=== PATIENT | female | born 1935 | race Caucasian/White ===

== ENCOUNTER → 2016-12-20 | Outpatient (CLI) | payer MEDICARE, OTHER ==
[~2016-12-20] MED LIST: COZAAR100 MG PO; LASIX 20MG TABL20 MG PO; LIPITOR 10MG10 MG PO; NORCO 325 MG-51 TAB PO; NORVASC 10MG10 MG PO; PROTONIX20 MG PO
== END ==
LOC: COL.VAS 09:15
DX: R60.0 Localized edema (principal); R06.02 Shortness of breath

== ENCOUNTER 2017-01-16 07:56 | Emergency (ER) | payer MEDICARE, OTHER ==
[~2017-01-16] VITALS: Ht 170.2 cm; Wt 88.6 kg
[2017-01-16 08:02] VITALS: BP 171/88; PULSE 95; TEMP 98
[2017-01-16] MEDS ORDERED: COZAAR100 MG PO (08:43)
[2017-01-16] MEDS ORDERED: NORVASC 10MG10 MG PO (08:43)
[2017-01-16] MEDS ORDERED: LASIX 20MG TABL20 MG PO (08:43)
[2017-01-16] MEDS ORDERED: PROTONIX20 MG PO (08:43)
[2017-01-16] MEDS ORDERED: LIPITOR 10MG10 MG PO (08:44)
[2017-01-16] MEDS ORDERED: NORCO 325 MG-51 TAB PO (09:26)
== END 2017-01-16 09:36 | disposition home or self-care (01) ==
LOC: COL.ER 07:56
DX: M25.511 Pain in right shoulder (principal); R20.0 Anesthesia of skin; R06.02 Shortness of breath

== ENCOUNTER 2017-02-28 10:30 | Outpatient (RCR) | payer MEDICARE, OTHER | END 2017-02-28 12:57 | disposition home or self-care (01) | LOC: MKS.ESL.PT 10:30 | DX: S46.911A Strain of unspecified muscle, fascia and tendon at shoulder and upper arm level, right arm, initial encounter (principal) | CPT/HCPCS: G8978-GP; G8979-GP; G8980-GP ==

== ENCOUNTER → 2017-04-10 | Outpatient (CLI) | payer MEDICARE, OTHER | LOC: MC.RAD 13:10 | DX: Z12.31 Encounter for screening mammogram for malignant neoplasm of breast (principal) ==

== ENCOUNTER → 2017-12-06 | Outpatient (CLI) | payer MEDICARE, OTHER | LOC: COL.PUL 11:00 | DX: J45.21 Mild intermittent asthma with (acute) exacerbation (principal) ==

== ENCOUNTER 2018-01-25 07:26 | Emergency (ER) | payer MEDICARE, OTHER ==
[~2018-01-25] VITALS: Ht 170.2 cm; Wt 90.9 kg
[2018-01-25 07:32] VITALS: TEMP 98
[2018-01-25] MEDS ORDERED: HCTZ 25MG TAB25 MG PO (07:51)
[2018-01-25] MEDS ORDERED: BENICAR40 MG PO (07:51)
[2018-01-25] MEDS ORDERED: PROAIR HFA0.09 MG/AC IH (07:53)
[2018-01-25] MEDS ORDERED: SINGULAIR 110 MG/TAB PO (07:53)
[2018-01-25] MEDS ORDERED: ZANTAC 150150 MG PO (07:53)
[2018-01-25] MEDS ORDERED: PRESERVISION1 SGL PO (07:57)
[2018-01-25 08:14] LABS: BASO % 0.3 % (0.0-2.0); EOS # 0.1 (0.0-0.7); EOS % 1.7 % (0-4.0); GRAN # 4.8 (1.4-6.5); GRAN % 63.9 % (42.2-75.2); HEMATOCRIT 39.4 % (37.0-47.0); HEMOGLOBIN 12.9 g/dl (12.5-16.0); LYMPH # 1.5 (1.2-3.4); LYMPH % 20.6 % (20.0-51.0); MEAN CELL VOLUME 99 fl (80.0-100.0); MEAN CORPUSCULAR HEMOGLOBIN 32 pg (27.0-31.0); MEAN CORPUSCULAR HGB CONC 33 g/dl (33.0-37.0); MEAN PLATELET VOLUME 8.7 fl (7.4-10.4); MONO % 13.2 % (1.7-9.3); PLATELET COUNT 237 K/mm3 (130-400); REDCELL DISTRIBUTION WIDTH-CV 12.7 % (11.5-14.5)
[2018-01-25 08:24] LABS: BILIRUBIN,TOTAL 0.3 mg/dL (0.0-1.0); C-REACTIVE PROTEIN 1.8 mg/dL (0.0-0.9); CALCIUM 9.5 mg/dL (8.4-10.2); CREATININE, serum 0.84 mg/dL (0.52-1.25); TOTAL PROTEIN 7.9 gm/dL (6.4-8.2)
[2018-01-25 08:26] LABS: COLLECTION METHOD CATHETER
[2018-01-25 08:31] LABS: PH 7 (5-8); SQUAMOUS EPITHELIAL 0-2 /hpf; URINE APPEARANCE Clear; URINE BACTERIA None Seen /hpf; URINE BILIRUBIN Negative (NEGATIVE); URINE BLOOD Negative (NEGATIVE); URINE COLOR Straw; URINE GLUCOSE Negative (NEGATIVE); URINE KETONE Negative (NEGATIVE); URINE LEUKOCYTE ESTERASE Negative (NEGATIVE); URINE NITRATE Negative (NEGATIVE); URINE PROTEIN(semi-quant) Negative (NEGATIVE); URINE RBC 0-2 /hpf; URINE UROBILINOGEN Negative (NEGATIVE)
[2018-01-25] MEDS ORDERED: NORCO 325 MG-51 TAB PO (09:47)
[2018-01-25 10:00] VITALS: BP 145/62; PULSE 83
== END 2018-01-25 10:00 | disposition home or self-care (01) ==
LOC: COL.ER 07:26
PROVIDERS: Emergency Medicine
DX: M62.830 Muscle spasm of back (principal)
CPT/HCPCS: J1885; J7040

== ENCOUNTER 2018-02-02 21:01 | Emergency (ER) | payer MEDICARE, OTHER ==
[~2018-02-02] VITALS: Ht 170.2 cm; Wt 90.9 kg
[~2018-02-02 21:01] MED LIST changes: +BENICAR40 MG PO; +HCTZ 25MG TAB25 MG PO; +PRESERVISION1 SGL PO; +PROAIR HFA0.09 MG/AC IH; +SINGULAIR 110 MG/TAB PO; +ZANTAC 150150 MG PO
[2018-02-02 21:08] VITALS: TEMP 98.2
[2018-02-02 21:58] LABS: COLLECTION METHOD CLEAN CATCH
[2018-02-02 22:03] LABS: PH 6 (5-8); SQUAMOUS EPITHELIAL 0-2 /hpf; URINE APPEARANCE Clear; URINE BACTERIA Rare /hpf; URINE BILIRUBIN Negative (NEGATIVE); URINE BLOOD Negative (NEGATIVE); URINE COLOR Straw; URINE GLUCOSE Negative (NEGATIVE); URINE KETONE Negative (NEGATIVE); URINE LEUKOCYTE ESTERASE Trace (NEGATIVE); URINE NITRATE Negative (NEGATIVE); URINE PROTEIN(semi-quant) Negative (NEGATIVE); URINE RBC 0-2 /hpf; URINE UROBILINOGEN Negative (NEGATIVE)
[2018-02-02] MEDS ORDERED: NORCO 325 MG-51 TAB PO (22:39)
[2018-02-02] MEDS ORDERED: FLEXERIL 1010 MG/TAB PO (22:39)
[2018-02-02 22:48] VITALS: BP 138/92; PULSE 80
== END 2018-02-02 22:50 | disposition home or self-care (01) ==
LOC: COL.ER 21:01
PROVIDERS: Emergency Medicine
DX: R10.9 Unspecified abdominal pain (principal); I10 Essential (primary) hypertension; Z90.49 Acquired absence of other specified parts of digestive tract; Z90.710 Acquired absence of both cervix and uterus; Z79.891 Long term (current) use of opiate analgesic

== ENCOUNTER 2018-02-06 08:33 | Emergency (ER) | payer MEDICARE, OTHER ==
[~2018-02-06] VITALS: Ht 170.2 cm; Wt 90.9 kg
[~2018-02-06 08:33] MED LIST changes: +FLEXERIL 1010 MG/TAB PO
[2018-02-06 08:36] VITALS: BP 160/72; TEMP 98
[2018-02-06] MEDS ORDERED: PERCOCET 325 MG1 TA3 PO (09:36)
[2018-02-06 10:04] VITALS: PULSE 82
== END 2018-02-06 09:55 | disposition home or self-care (01) ==
LOC: COL.ER 08:33
DX: M48.54XA Collapsed vertebra, not elsewhere classified, thoracic region, initial encounter for fracture (principal); I10 Essential (primary) hypertension; K21.9 Gastro-esophageal reflux disease without esophagitis; M19.90 Unspecified osteoarthritis, unspecified site; Z79.891 Long term (current) use of opiate analgesic; Z88.2 Allergy status to sulfonamides; Z88.6 Allergy status to analgesic agent

== ENCOUNTER → 2018-02-12 | Outpatient (CLI) | payer MEDICARE, OTHER ==
[~2018-02-12] MED LIST changes: +PERCOCET 325 MG1 TA3 PO
== END ==
LOC: COL.RAD 13:40
DX: S22.080A Wedge compression fracture of T11-T12 vertebra, initial encounter for closed fracture (principal); M47.26 Other spondylosis with radiculopathy, lumbar region; M51.15 Intervertebral disc disorders with radiculopathy, thoracolumbar region; M43.16 Spondylolisthesis, lumbar region; M48.061 Spinal stenosis, lumbar region without neurogenic claudication; M99.73 Connective tissue and disc stenosis of intervertebral foramina of lumbar region

== ENCOUNTER 2018-02-19 07:43 | Outpatient (CLI) | payer MEDICARE, OTHER ==
[~2018-02-19] VITALS: Ht 170.3 cm; Wt 89.3 kg
[2018-02-19 08:48] VITALS: BP 151/81; PULSE 94; TEMP 97.4
[2018-02-19 10:56] VITALS: BP 176/78; PULSE 114
[2018-02-19 11:35] VITALS: BP 145/71; PULSE 95
[2018-02-19 11:50] VITALS: BP 134/95; PULSE 97
[2018-02-19 12:07] VITALS: BP 141/84; PULSE 91
== END 2018-02-19 13:30 | disposition home or self-care (01) ==
LOC: COL.CAR 07:43
DX: M80.08XA Age-related osteoporosis with current pathological fracture, vertebra(e), initial encounter for fracture (principal); I10 Essential (primary) hypertension; Z88.2 Allergy status to sulfonamides; Z88.1 Allergy status to other antibiotic agents; Z79.51 Long term (current) use of inhaled steroids; E78.5 Hyperlipidemia, unspecified; M19.90 Unspecified osteoarthritis, unspecified site; J45.21 Mild intermittent asthma with (acute) exacerbation; J30.2 Other seasonal allergic rhinitis; Z82.3 Family history of stroke; Z80.0 Family history of malignant neoplasm of digestive organs; Z82.49 Family history of ischemic heart disease and other diseases of the circulatory system; Z80.1 Family history of malignant neoplasm of trachea, bronchus and lung; Z83.3 Family history of diabetes mellitus
CPT/HCPCS: J2250; J3010

== ENCOUNTER → 2018-03-27 | Outpatient (CLI) | payer MEDICARE, OTHER ==
[~2018-03-27] VITALS: Ht 170.2 cm; Wt 89.4 kg
[~2018-03-27] MED LIST changes: +ADVIL LIQUI-GE200 MG PO; +FLONASE NASAL S16 GM NS; +NORVASC 5MG5 MG/TAB PO; +PERCOCET 325 MG1 TA2 PO; +TYLENOL 500MG500 MG PO
[2018-03-27 09:37] VITALS: BP 162/88; PULSE 103
[2018-03-27 10:41] VITALS: BP 159/85; PULSE 89
== END ==
LOC: COL.RAD 09:12
DX: M51.26 Other intervertebral disc displacement, lumbar region (principal)
CPT/HCPCS: J3301

== ENCOUNTER 2018-03-31 00:28 | Emergency (ER) | payer MEDICARE, OTHER ==
[~2018-03-31] VITALS: Ht 170.2 cm; Wt 90.5 kg
[~2018-03-31 00:28] MED LIST changes: -PERCOCET 325 MG1 TA2 PO
[2018-03-31 00:37] VITALS: TEMP 98.1
[2018-03-31] MEDS ORDERED: PERCOCET 325 MG1 TA2 PO (03:16)
[2018-03-31 04:00] VITALS: BP 136/42; PULSE 92
== END 2018-03-31 04:00 | disposition home or self-care (01) ==
LOC: COL.ER 00:28
DX: G89.29 Other chronic pain (principal); M54.5 Low back pain; I10 Essential (primary) hypertension; Z90.710 Acquired absence of both cervix and uterus; Z79.51 Long term (current) use of inhaled steroids
CPT/HCPCS: J1170

== ENCOUNTER → 2018-04-16 | Outpatient (CLI) | payer MEDICARE, OTHER ==
[~2018-04-16] VITALS: Ht 170.2 cm; Wt 86.9 kg
[~2018-04-16] MED LIST changes: +PERCOCET 325 MG1 TA2 PO
[2018-04-16 12:16] VITALS: BP 170/89; PULSE 101
[2018-04-16 13:30] VITALS: BP 166/81; PULSE 94
== END ==
LOC: COL.RAD 11:40
DX: S22.080A Wedge compression fracture of T11-T12 vertebra, initial encounter for closed fracture (principal); M47.26 Other spondylosis with radiculopathy, lumbar region; M51.16 Intervertebral disc disorders with radiculopathy, lumbar region
CPT/HCPCS: J3301

== ENCOUNTER 2018-05-04 15:30 | Emergency (ER) | payer MEDICARE, OTHER ==
[~2018-05-04] VITALS: Ht 170.2 cm; Wt 86.4 kg
[2018-05-04 15:34] VITALS: TEMP 98.2
[2018-05-04 16:45] LABS: COLLECTION METHOD CLEAN CATCH
[2018-05-04 16:46] LABS: BASO % 0.3 % (0.0-2.0); EOS # 0.1 (0.0-0.7); EOS % 0.8 % (0-4.0); GRAN # 4.6 (1.4-6.5); GRAN % 63.3 % (42.2-75.2); HEMATOCRIT 37.8 % (37.0-47.0); HEMOGLOBIN 12.6 g/dl (12.5-16.0); LYMPH # 1.5 (1.2-3.4); LYMPH % 21.2 % (20.0-51.0); MEAN CELL VOLUME 98 fl (80.0-100.0); MEAN CORPUSCULAR HEMOGLOBIN 33 pg (27.0-31.0); MEAN CORPUSCULAR HGB CONC 33 g/dl (33.0-37.0); MEAN PLATELET VOLUME 8.1 fl (7.4-10.4); PLATELET COUNT 280 K/mm3 (130-400); RED BLOOD COUNT 3.85 M/mm3 (4.10-5.30); REDCELL DISTRIBUTION WIDTH-CV 13.2 % (11.5-14.5)
[2018-05-04 16:53] LABS: MUCOUS Present /lpf; PH 6 (5-8); SQUAMOUS EPITHELIAL 0-2 /hpf; URINE APPEARANCE Clear; URINE BACTERIA Rare /hpf; URINE BILIRUBIN Negative (NEGATIVE); URINE BLOOD Negative (NEGATIVE); URINE COLOR Yellow; URINE GLUCOSE Negative (NEGATIVE); URINE KETONE Negative (NEGATIVE); URINE LEUKOCYTE ESTERASE Trace (NEGATIVE); URINE NITRATE Negative (NEGATIVE); URINE PROTEIN(semi-quant) Negative (NEGATIVE); URINE RBC 0-2 /hpf; URINE UROBILINOGEN Negative (NEGATIVE)
[2018-05-04 16:55] LABS: BILIRUBIN,TOTAL 0.4 mg/dL (0.0-1.0); C-REACTIVE PROTEIN 0.8 mg/dL (0.0-0.9); CALCIUM 9.6 mg/dL (8.4-10.2); CREATININE, serum 0.91 mg/dL (0.52-1.25); POTASSIUM 3.9 mmol/L (3.4-5.0); TOTAL PROTEIN 7.5 gm/dL (6.4-8.2)
[2018-05-04] MEDS ORDERED: NORVASC 5MG5 MG/TAB PO (18:15)
[2018-05-04] MEDS ORDERED: BENICAR40 MG PO (18:16)
[2018-05-04] MEDS ORDERED: PERCOCET 325 MG1 TA2 PO (18:22)
[2018-05-04 18:44] VITALS: BP 147/65; PULSE 95
== END 2018-05-04 18:56 | disposition home or self-care (01) ==
LOC: COL.ER 15:30
PROVIDERS: Emergency Medicine
DX: S22.079A Unspecified fracture of T9-T10 vertebra, initial encounter for closed fracture (principal); X58.XXXA Exposure to other specified factors, initial encounter
CPT/HCPCS: J3010; J7030; Q9967

== ENCOUNTER 2018-05-19 12:27 | Outpatient (CLI) | payer MEDICARE, OTHER ==
[2018-05-19] VITALS (8 sets, daily range): BP systolic 114–145; BP diastolic 48–74; PULSE 90–108
[2018-05-19] MEDS ORDERED: AREDS 2 (13:41)
[2018-05-19] MEDS ORDERED: VITAMIN D32000 IU (13:42)
[2018-05-19] MEDS ORDERED: PERCOCET 325 MG1 TA2 PO (13:43)
== END 2018-05-19 18:10 | disposition home or self-care (01) ==
LOC: COL.CAR 12:27
DX: S22.080A Wedge compression fracture of T11-T12 vertebra, initial encounter for closed fracture (principal); I10 Essential (primary) hypertension; Z90.710 Acquired absence of both cervix and uterus; Z88.2 Allergy status to sulfonamides; Z88.5 Allergy status to narcotic agent
CPT/HCPCS: C1713; J2250; J3010; J7120

== ENCOUNTER 2018-05-23 04:54 | Emergency (ER) | payer MEDICARE, OTHER ==
[~2018-05-23] VITALS: Ht 170.2 cm; Wt 86.4 kg
[~2018-05-23 04:54] MED LIST changes: +AREDS 2; +VITAMIN D32000 IU
[2018-05-23 04:55] VITALS: TEMP 98.2
[2018-05-23] MEDS ORDERED: FOSAMAX 10M10 MG/TAB PO (05:12)
[2018-05-23 05:42] LABS: BASO % 0.1 % (0.0-2.0); EOS # 0.1 (0.0-0.7); EOS % 1.8 % (0-4.0); GRAN # 4.1 (1.4-6.5); GRAN % 60.9 % (42.2-75.2); HEMATOCRIT 37.5 % (37.0-47.0); HEMOGLOBIN 12.8 g/dl (12.5-16.0); LYMPH # 1.4 (1.2-3.4); LYMPH % 21.3 % (20.0-51.0); MEAN CELL VOLUME 99 fl (80.0-100.0); MEAN CORPUSCULAR HEMOGLOBIN 34 pg (27.0-31.0); MEAN CORPUSCULAR HGB CONC 34 g/dl (33.0-37.0); MEAN PLATELET VOLUME 8.5 fl (7.4-10.4); MONO % 15.5 % (1.7-9.3); PLATELET COUNT 234 K/mm3 (130-400); REDCELL DISTRIBUTION WIDTH-CV 12.9 % (11.5-14.5)
[2018-05-23 05:54] LABS: ALBUMIN 3.8 gm/dL (3.5-5.0); BILIRUBIN,TOTAL 0.5 mg/dL (0.0-1.0); CALCIUM 8.7 mg/dL (8.4-10.2); CREATININE, serum 0.78 mg/dL (0.52-1.25); POTASSIUM 3.8 mmol/L (3.4-5.0); TOTAL PROTEIN 6.9 gm/dL (6.4-8.2)
[2018-05-23] MEDS ORDERED: ZOFRAN ODT4 MG PO (06:16)
[2018-05-23] MEDS ORDERED: LIDODERM 5% PATC1 EA TP (06:16)
[2018-05-23] MEDS ORDERED: ULTRAM 50MG TAB50 MG PO (06:50)
[2018-05-23 07:03] VITALS: BP 137/56; PULSE 86
[2018-05-24] MEDS ORDERED: MASON NATURAL2000 IU (23:00)
== END 2018-05-23 07:02 | disposition home or self-care (01) ==
LOC: COL.ER 04:54
PROVIDERS: Emergency Medicine
DX: T39.1X5A Adverse effect of 4-Aminophenol derivatives, initial encounter (principal); S22.000A Wedge compression fracture of unspecified thoracic vertebra, initial encounter for closed fracture; R11.0 Nausea; I10 Essential (primary) hypertension; Z79.51 Long term (current) use of inhaled steroids; X58.XXXA Exposure to other specified factors, initial encounter
CPT/HCPCS: J2405; J7030

== ENCOUNTER 2018-05-24 21:12 | Emergency (ER) | payer MEDICARE, OTHER ==
[~2018-05-24 21:12] MED LIST changes: +FOSAMAX 10M10 MG/TAB PO; +LIDODERM 5% PATC1 EA TP; +ULTRAM 50MG TAB50 MG PO; +ZOFRAN ODT4 MG PO
[2018-05-24 21:24] VITALS: TEMP 98.2
[2018-05-24 22:47] LABS: BASO % 0.3 % (0.0-2.0); EOS # 0.1 (0.0-0.7); EOS % 1.4 % (0-4.0); GRAN # 3.9 (1.4-6.5); GRAN % 61.2 % (42.2-75.2); HEMATOCRIT 38.1 % (37.0-47.0); HEMOGLOBIN 12.8 g/dl (12.5-16.0); LYMPH # 1.4 (1.2-3.4); LYMPH % 22.2 % (20.0-51.0); MEAN CELL VOLUME 99 fl (80.0-100.0); MEAN CORPUSCULAR HEMOGLOBIN 33 pg (27.0-31.0); MEAN CORPUSCULAR HGB CONC 34 g/dl (33.0-37.0); MEAN PLATELET VOLUME 8.6 fl (7.4-10.4); MONO # 0.9 (0.1-0.6); MONO % 14.6 % (1.7-9.3); PLATELET COUNT 261 K/mm3 (130-400); RED BLOOD COUNT 3.85 M/mm3 (4.10-5.30); REDCELL DISTRIBUTION WIDTH-CV 12.9 % (11.5-14.5)
[2018-05-24 22:53] LABS: PROTHROMBIN TIME 11.8 SECONDS (9.7-12.8)
[2018-05-24 22:58] LABS: ALANINE AMINOTRANSFERASE 29 U/L (9-52); ALKALINE PHOSPHATASE 85 U/L (50-136); ANION GAP 7 mmol/L (7-16); AST,SGOT 31 U/L (15-37); BILIRUBIN,TOTAL 0.4 mg/dL (0.0-1.0); BLOOD UREA NITROGEN 19 mg/dL (7-17); CALCIUM 8.9 mg/dL (8.4-10.2); CARBON DIOXIDE 26 mmol/L (22-30); CHLORIDE 99 mmol/L (98-107); CREATININE, serum 0.85 mg/dL (0.52-1.25); GLUCOSE 99 mg/dL (74-106); LIPASE 76 U/L (23-300); POTASSIUM 4.4 mmol/L (3.4-5.0); SODIUM 133 mmol/L (137-145); TOTAL PROTEIN 7.2 gm/dL (6.4-8.2)
[2018-05-24] MEDS ORDERED: MASON NATURAL2000 IU (23:00)
[2018-05-24 23:11] LABS: TROPONIN-I < 0.012 ng/mL (0.000-0.034)
[2018-05-25 01:00] VITALS: BP 152/84; PULSE 93
== END 2018-05-25 01:02 | disposition home or self-care (01) ==
LOC: COL.ER 21:12
PROVIDERS: Emergency Medicine
DX: S22.49XA Multiple fractures of ribs, unspecified side, initial encounter for closed fracture (principal); K21.9 Gastro-esophageal reflux disease without esophagitis; I10 Essential (primary) hypertension; M19.90 Unspecified osteoarthritis, unspecified site; Z90.710 Acquired absence of both cervix and uterus; Z79.51 Long term (current) use of inhaled steroids; X58.XXXA Exposure to other specified factors, initial encounter
CPT/HCPCS: J1170; J2765; J7030

== ENCOUNTER 2018-07-11 15:25 | Outpatient (CLI) | payer MEDICARE, OTHER ==
[~2018-07-11] VITALS: Ht 170.2 cm; Wt 83.5 kg
[~2018-07-11 15:25] MED LIST changes: +MASON NATURAL2000 IU
[2018-07-11 16:39] VITALS: BP 142/60; PULSE 81; TEMP 97.5
== END 2018-07-11 17:29 | disposition home or self-care (01) ==
LOC: EUO 15:25
DX: M81.0 Age-related osteoporosis without current pathological fracture (principal)
CPT/HCPCS: J3489

== ENCOUNTER → 2019-04-27 | Outpatient (CLI) | payer MEDICARE, OTHER | LOC: MC.RAD 13:56 | DX: Z12.31 Encounter for screening mammogram for malignant neoplasm of breast (principal) ==

== ENCOUNTER → 2019-05-13 | Outpatient (CLI) | payer MEDICARE, OTHER ==
[~2019-05-13] MED LIST changes: +DIOVAN320 MG PO; -MASON NATURAL2000 IU; +MASON NATURAL2000 IU PO; +PRESERVISIONLUT PO
== END ==
LOC: COL.RAD 11:37
DX: M47.22 Other spondylosis with radiculopathy, cervical region (principal)

== ENCOUNTER → 2019-05-15 | Outpatient (CLI) | payer MEDICARE, OTHER ==
[~2019-05-15] VITALS: Ht 170.2 cm; Wt 84.6 kg
[2019-05-15 13:21] VITALS: BP 184/76; PULSE 89
--- NOTE | 2019-05-15 13:51 | NUR ---
TAKEN TO CT
--- NOTE | 2019-05-15 14:20 | NUR ---
PT TAKEN BY WHEELCHAIR TO LOBBY AND SON DROVE PT HOME
[2019-05-15 14:21] VITALS: BP 153/75; PULSE 94
== END ==
LOC: COL.RAD 13:00
DX: M51.26 Other intervertebral disc displacement, lumbar region (principal); M48.061 Spinal stenosis, lumbar region without neurogenic claudication
CPT/HCPCS: J3301

== ENCOUNTER → 2019-06-29 | Outpatient (CLI) | payer MEDICARE, OTHER | LOC: MHCPAIN 12:50 | DX: G89.29 Other chronic pain (principal); M47.812 Spondylosis without myelopathy or radiculopathy, cervical region; R51 Headache | CPT/HCPCS: G0463 ==

== ENCOUNTER 2019-08-03 12:57 | Outpatient (CLI) | payer MEDICARE, OTHER ==
[~2019-08-03] VITALS: Ht 170.2 cm; Wt 85.5 kg
[2019-08-03 13:59] VITALS: BP 156/57; PULSE 84; TEMP 97.7
== END 2019-08-03 14:01 | disposition home or self-care (01) ==
LOC: EUO 12:57
DX: M81.0 Age-related osteoporosis without current pathological fracture (principal)
CPT/HCPCS: J3489

== ENCOUNTER → 2019-09-01 | Outpatient (CLI) | payer MEDICARE, OTHER | LOC: MHCPAIN 12:47 | DX: M54.81 Occipital neuralgia (principal); R51 Headache | CPT/HCPCS: G0463 ==

== ENCOUNTER → 2020-03-22 | Outpatient (CLI) | payer MEDICARE, OTHER ==
[~2020-03-22] VITALS: Ht 170.2 cm; Wt 86.3 kg
[2020-03-22 13:29] VITALS: PULSE 69
[2020-03-22 13:31] VITALS: BP 160/70; PULSE 69
[2020-03-22 14:31] VITALS: BP 164/80; PULSE 79
== END ==
LOC: COL.RAD 13:00
DX: M51.26 Other intervertebral disc displacement, lumbar region (principal)
CPT/HCPCS: J3301

== ENCOUNTER → 2020-04-28 | Outpatient (CLI) | payer MEDICARE, OTHER | LOC: MC.RAD 13:00 | DX: Z12.31 Encounter for screening mammogram for malignant neoplasm of breast (principal) ==

== ENCOUNTER 2020-07-13 13:51 | Outpatient (CLI) | payer MEDICARE, OTHER ==
[~2020-07-13] VITALS: Ht 170.2 cm; Wt 87.0 kg
[2020-07-13 14:15] VITALS: BP 150/64; PULSE 72; TEMP 98
== END 2020-07-13 15:10 | disposition home or self-care (01) ==
LOC: EUO 13:51
DX: M81.0 Age-related osteoporosis without current pathological fracture (principal); M84.40XA Pathological fracture, unspecified site, initial encounter for fracture
CPT/HCPCS: J3489

== ENCOUNTER 2020-10-10 14:04 | Inpatient (IN) | payer MEDICARE, OTHER ==
[2020-10-10] VITALS (99 sets, daily range): BP systolic 117–140; BP diastolic 68–103; PULSE 100–128; TEMP 98.1; O2SAT 87–98
[~2020-10-10] VITALS: Ht 170.2 cm; Wt 85.0 kg
[2020-10-10 15:14] LABS: BASO % 0.4 % (0.0-2.0); EOS # 0.3 (0.0-0.7); EOS % 3.2 % (0-4.0); GRAN # 4.1 (1.4-6.5); GRAN % 50.6 % (42.2-75.2); HEMATOCRIT 44.6 % (37.0-47.0); HEMOGLOBIN 14.5 g/dl (12.5-16.0); LYMPH # 2.5 (1.2-3.4); LYMPH % 31.3 % (20.0-51.0); MEAN CELL VOLUME 102 fl (80.0-100.0); MEAN CORPUSCULAR HEMOGLOBIN 33 pg (27.0-31.0); MEAN CORPUSCULAR HGB CONC 33 g/dl (33.0-37.0); MONO # 1.2 (0.1-0.6); MONO % 14.3 % (1.7-9.3); PLATELET COUNT 293 K/mm3 (130-400); RED BLOOD COUNT 4.39 M/mm3 (4.10-5.30); REDCELL DISTRIBUTION WIDTH-CV 12.8 % (11.5-14.5)
[2020-10-10 15:17] LABS: ALANINE AMINOTRANSFERASE 15 U/L (4-34); ALBUMIN 4.3 gm/dL (3.5-5.0); ALKALINE PHOSPHATASE 64 U/L (50-136); ANION GAP 11 mmol/L (7-16); AST,SGOT 25 U/L (15-37); BILIRUBIN,TOTAL 0.4 mg/dL (0.0-1.0); BLOOD UREA NITROGEN 27 mg/dL (7-17); CALCIUM 9.7 mg/dL (8.4-10.2); CARBON DIOXIDE 25 mmol/L (22-30); CHLORIDE 100 mmol/L (98-107); CREATININE, serum 1.06 (0.52-1.25); GLUCOSE 106 mg/dL (74-106); POTASSIUM 3.7 mmol/L (3.4-5.0); SODIUM 136 mmol/L (137-145); TOTAL PROTEIN 7.6 gm/dL (6.4-8.2)
[2020-10-10 15:24] LABS: PROTHROMBIN TIME 11.4 SECONDS (9.7-12.8)
[2020-10-10 15:27] LABS: PARTIAL THROMBOPLASTIN TIME 30.6 SECONDS (26.0-37.0)
[2020-10-10 15:28] LABS: TROPONIN-I < 0.012 ng/mL (0.000-0.035)
--- NOTE | 2020-10-10 20:47 | NUR ---
Received report from EDITH Quintana RN.
[2020-10-10 20:49] LABS: MAGNESIUM 2.1 mg/dL (1.6-2.3)
--- NOTE | 2020-10-10 21:07 | NUR ---
Patient arrives to ICU room 2 via ED stretcher. Patient is alert and oriented and able to ambulate to ICU bed with standby assistance. Patient arrives receiving cardizem at 10 mg/hr or 10 mL/hr to a 20G peripheral IV in the RAC. Initial BP is 140/103 and HR is 128, in afib. Other vitals within normal limits; she is on room air, tolerating well. Denies any pain or discomfort. No skin issues noted.
--- NOTE | 2020-10-10 21:07 | NUR ---
Patient's belongings include street clothes, a wedding ring, and a pair of glasses, which are at the bedside. Denies having dentures, partials, or plates, or any hearing aides. Reports occasional use of walking cane, however, it is not with her at this time. Refuses use of hospital safe when offered.
[2020-10-10 21:23] LABS: TSH w REFLEX 2.49 uIU/mL (0.465-4.680)
[2020-10-10] MEDS ORDERED: RT ADVAIR 228 DISKUS IH (21:32)
[2020-10-11] VITALS (375 sets, daily range): BP systolic 86–118; BP diastolic 36–81; PULSE 80–145; TEMP 97.9–98.2; O2SAT 84–100
--- NOTE | 2020-10-11 02:00 | NUR ---
Cardizem drip set to standby at this time. Patient's BPs have progressively gotten lower, with the last two being 88/50 and 86/36, 15 minutes apart. Patient remains in afib with HR ranging 60-70s. Notified hospitalist, Stefany, who agrees with holding the drip.
--- NOTE | 2020-10-11 05:41 | NUR ---
Patient's HR increased to 160s while ambulating back to bed from toilet. Patient asymptomatic and HR quickly decreased to range of 100-115 once settled in bed. Notified hospitalist, Stefany. SBPs since holding cardizem drip at 0200 have ranged from 100-117 with HR 80-90s. Received orders to restart drip at lowest dose.
[2020-10-11 05:42] LABS: BASO % 0.3 % (0.0-2.0); EOS # 0.2 (0.0-0.7); EOS % 2.6 % (0-4.0); GRAN # 5.4 (1.4-6.5); GRAN % 69.1 % (42.2-75.2); HEMATOCRIT 39.1 % (37.0-47.0); HEMOGLOBIN 13.1 g/dl (12.5-16.0); LYMPH # 1.5 (1.2-3.4); LYMPH % 18.9 % (20.0-51.0); MEAN CELL VOLUME 100 fl (80.0-100.0); MEAN CORPUSCULAR HEMOGLOBIN 33 pg (27.0-31.0); MEAN CORPUSCULAR HGB CONC 34 g/dl (33.0-37.0); MEAN PLATELET VOLUME 8.7 fl (7.4-10.4); MONO # 0.7 (0.1-0.6); MONO % 8.7 % (1.7-9.3); PLATELET COUNT 258 K/mm3 (130-400); RED BLOOD COUNT 3.92 M/mm3 (4.10-5.30); REDCELL DISTRIBUTION WIDTH-CV 12.9 % (11.5-14.5)
[2020-10-11 05:54] LABS: ALBUMIN 3.7 gm/dL (3.5-5.0); BILIRUBIN,TOTAL 0.6 mg/dL (0.0-1.0); CALCIUM 9.2 mg/dL (8.4-10.2); CREATININE, serum 0.95 (0.52-1.25); POTASSIUM 3.6 mmol/L (3.4-5.0); TOTAL PROTEIN 6.7 gm/dL (6.4-8.2)
--- NOTE | 2020-10-11 07:10 | NUR ---
Report received from Kinsey VASQUES. Pt resting in bed although both oncoming and off going nurse assisted to toilet. Pt denies any light headedness and feels steady on feet. Needs standby assist with attached cords.
--- NOTE | 2020-10-11 07:50 | NUR ---
Tech at bedside for Echo.
--- NOTE | 2020-10-11 09:00 | NUR ---
Pt assessment completed. Pt reports posterior tibial pulse to the right leg has always been harder to find due to prior achilles tendon surgery. Other pulses are easily palpable. Cap refill and mobility to extremity WNL.
--- NOTE | 2020-10-11 10:00 | NUR ---
Provided pt security code, unit phone number as well as pt room number.
--- NOTE | 2020-10-11 10:36 | NUR ---
Pt continues to demonstrate ability for proper use of call light for assistance.
--- NOTE | 2020-10-11 11:46 | NUR ---
First visit from the ultrasonic tester. No needs right now.
--- NOTE | 2020-10-11 15:48 | NUR ---
Funeral Home Manager met with the patient to complete intake. The patient lives in [place], her son Cody lives with her. The patient has a cane and is independent. The patient's PCP is Dr. Daugherty at [facility] and patient receives medications from [facility] pharmacy. The patient does not have advanced directives in the EMR but states they are complete and designate her son Cody. The patient plans to return home at discharge. SHEA contacted SHEA Choe from [facility] to inquire about DPOA-HC papwerwork. Дмитрий confirmed that they do have advanced directives for the patient, Дмитрий to fax DPOA-HC paperwork to this SW.
--- NOTE | 2020-10-11 18:20 | NUR ---
Noted bruising medially to Right AC IV line. This has been present since yesterday following X2 IV draws for labs. Pressure was held by this nurse initally (yesterday). Purple bruising remains with signs of healing stages. Pt denies any concerns with IV, including burning, swelling, increased redness or signs of infiltration.
--- NOTE | 2020-10-11 19:05 | NUR ---
Report provided to Kinsey VASQUES. Pt resting in bed.
[2020-10-12] VITALS (662 sets, daily range): BP systolic 101–143; BP diastolic 56–96; PULSE 74–124; TEMP 97.6–98.3; O2SAT 64–100
--- NOTE | 2020-10-12 03:02 | NUR ---
Cardizem drip on standy since approximately 2300 due to soft pressures. Since drip has been on standby, patient's HR has been rate controlled, ranging 70-90s. Despite cardizem being on hold, patient has still had soft pressures, SBPs low 90s, DBPs 50-60s, with MAPs ranging 60-65. However, when patient ambulates, HR temporarily reaches 130s; once back in bed, HR returns to 90-100s range. Contacted hospitalist, Stefany, at [phone] to discuss concerns regarding drip. Per her direction, will keep cardizem on standby at this time.
[2020-10-12 06:42] LABS: BASO % 0.1 % (0.0-2.0); EOS # 0.3 (0.0-0.7); EOS % 3.9 % (0-4.0); GRAN # 4.2 (1.4-6.5); GRAN % 58.3 % (42.2-75.2); HEMOGLOBIN 13.1 g/dl (12.5-16.0); LYMPH # 1.7 (1.2-3.4); LYMPH % 23.6 % (20.0-51.0); MEAN CELL VOLUME 101 fl (80.0-100.0); MEAN CORPUSCULAR HEMOGLOBIN 33 pg (27.0-31.0); MEAN CORPUSCULAR HGB CONC 33 g/dl (33.0-37.0); MEAN PLATELET VOLUME 8.8 fl (7.4-10.4); MONO % 13.8 % (1.7-9.3); PLATELET COUNT 243 K/mm3 (130-400); RED BLOOD COUNT 3.96 M/mm3 (4.10-5.30); REDCELL DISTRIBUTION WIDTH-CV 12.8 % (11.5-14.5)
[2020-10-12 06:52] LABS: CALCIUM 8.7 mg/dL (8.4-10.2); CREATININE, serum 0.9 (0.52-1.25); POTASSIUM 3.9 mmol/L (3.4-5.0)
--- NOTE | 2020-10-12 07:20 | NUR ---
Report given to LAYO Mathew.
--- NOTE | 2020-10-12 10:00 | NUR ---
Distribution Driver received the patient's advanced directives from Дмитрий. They designate her sons, Cody and Frank. A copy was placed in the chart.
--- NOTE | 2020-10-12 18:53 | NUR ---
1107- TIME OUT FOR [facility]YALA AND CARDIOVERSION COMPLETED. Pt successfully converted with one attempt at [address] Zhao, [facility] anesthesia, RN, museum exhibit technician at bedside. PT is currenlty showing sinus rhythm without complaints.
[2020-10-13] VITALS (90 sets, daily range): BP systolic 124–139; BP diastolic 57–60; PULSE 69–83; TEMP 97.8–98; O2SAT 83–100
[2020-10-13 06:42] LABS: BASO % 0.3 % (0.0-2.0); EOS # 0.3 (0.0-0.7); GRAN # 3.9 (1.4-6.5); GRAN % 55.8 % (42.2-75.2); HEMATOCRIT 37.7 % (37.0-47.0); LYMPH # 1.8 (1.2-3.4); LYMPH % 25.7 % (20.0-51.0); MEAN CELL VOLUME 103 fl (80.0-100.0); MEAN CORPUSCULAR HEMOGLOBIN 33 pg (27.0-31.0); MEAN CORPUSCULAR HGB CONC 32 g/dl (33.0-37.0); MONO % 13.9 % (1.7-9.3); PLATELET COUNT 239 K/mm3 (130-400); RED BLOOD COUNT 3.67 M/mm3 (4.10-5.30); REDCELL DISTRIBUTION WIDTH-CV 12.7 % (11.5-14.5)
[2020-10-13 06:55] LABS: CALCIUM 8.7 mg/dL (8.4-10.2); CREATININE, serum 0.94 (0.52-1.25); POTASSIUM 3.9 mmol/L (3.4-5.0)
--- NOTE | 2020-10-13 07:00 | NUR ---
Report received from LAYO Rai. Patient resting in bed, awake, waiting on breakfast.
[2020-10-13] MEDS ORDERED: LASIX 20MG TABL20 MG PO (10:41)
[2020-10-13] MEDS ORDERED: ELIQUIS 5MG PO (10:41)
[2020-10-13] MEDS ORDERED: CORDARONE200 MG/TAB PO (10:43)
[2020-10-13] MEDS ORDERED: HCTZ 25MG TAB25 MG PO (11:09)
--- NOTE | 2020-10-13 13:30 | NUR ---
Patient discharged to home with SonShashi to take her. Discharge packet and prescriptions, and follow up appts discussed.
[2021-06-02] MEDS ORDERED: TOPROL XL 25MG25 MG PO (13:42)
[2021-06-02] MEDS ORDERED: NEURONTIN100 MG/CAP PO (13:42)
[2021-06-02] MEDS ORDERED: SYNTHROID 0.0.025 MG PO (13:43)
== END 2020-10-13 13:30 | disposition home or self-care (01) | DRG 309 ==
LOC: COL.ER 14:04 → ICU 18:19 → EDBEDREQ 19:33 → ICU 10-12 08:31
PROVIDERS: Emergency Medicine; Student in an Organized Health Care Education/Training Program; ADMIT Student in an Organized Health Care Education/Training Program
PROC: 5A2204Z Restoration of Cardiac Rhythm, Single (ICD-10-PCS; principal; 2020-10-12)
PROC: B24BZZ4 Ultrasonography of Heart with Aorta, Transesophageal (ICD-10-PCS; 2020-10-12)
DX: I48.91 Unspecified atrial fibrillation (principal); I50.30 Unspecified diastolic (congestive) heart failure; I11.0 Hypertensive heart disease with heart failure; J45.909 Unspecified asthma, uncomplicated; E03.9 Hypothyroidism, unspecified; I08.1 Rheumatic disorders of both mitral and tricuspid valves; G89.29 Other chronic pain; K21.9 Gastro-esophageal reflux disease without esophagitis; Z20.822 Contact with and (suspected) exposure to COVID-19; R79.0 Abnormal level of blood mineral; Z79.1 Long term (current) use of non-steroidal anti-inflammatories (NSAID); Z90.710 Acquired absence of both cervix and uterus; Z88.2 Allergy status to sulfonamides; Z88.5 Allergy status to narcotic agent
CPT/HCPCS: 99223-AI; 99233-AI; 99239; J0282; J2405; J2704; J7030; J7060; Q9967

== ENCOUNTER → 2020-12-29 | Outpatient (CLI) | payer MEDICARE, OTHER ==
[~2020-12-29] MED LIST changes: +CORDARONE200 MG/TAB PO; +ELIQUIS 5MG PO; +NEURONTIN100 MG/CAP PO; +RT ADVAIR 228 DISKUS IH; +SYNTHROID 0.0.025 MG PO; +TOPROL XL 25MG25 MG PO
== END ==
LOC: COL.VAS 14:24
DX: I65.23 Occlusion and stenosis of bilateral carotid arteries (principal)

== ENCOUNTER 2021-01-18 14:45 | Outpatient (RCR) | payer MEDICARE, OTHER ==
[~2021-01-18 14:45] MED LIST changes: -NEURONTIN100 MG/CAP PO; -SYNTHROID 0.0.025 MG PO; -TOPROL XL 25MG25 MG PO
[2021-06-02] MEDS ORDERED: TOPROL XL 25MG25 MG PO (13:42)
[2021-06-02] MEDS ORDERED: NEURONTIN100 MG/CAP PO (13:42)
[2021-06-02] MEDS ORDERED: SYNTHROID 0.0.025 MG PO (13:43)
== END 2021-03-21 | disposition home or self-care (01) ==
LOC: MKS.ESL.OT
DX: G56.00 Carpal tunnel syndrome, unspecified upper limb (principal)

== ENCOUNTER → 2021-05-01 | Outpatient (CLI) | payer MEDICARE, OTHER ==
[~2021-05-01] MED LIST changes: +NEURONTIN100 MG/CAP PO; +SYNTHROID 0.0.025 MG PO; +TOPROL XL 25MG25 MG PO
== END ==
LOC: MC.RAD 13:28
DX: Z12.31 Encounter for screening mammogram for malignant neoplasm of breast (principal)

== ENCOUNTER → 2021-06-02 | Outpatient (CLI) | payer MEDICARE, OTHER ==
--- NOTE | 2021-05-29 09:45 | NUR ---
LMOM TO STOP ELIQUIS ON SATURDAY. LEFT INSTRUCTIONS AND CALL BACK NUMBER
[~2021-06-02] VITALS: Ht 170.2 cm; Wt 87.0 kg
[2021-06-02 13:33] VITALS: BP 181/83; PULSE 69; TEMP 97.8
[2021-06-02 15:10] VITALS: BP 172/71; PULSE 70
== END ==
LOC: COL.RAD 12:57
DX: M47.26 Other spondylosis with radiculopathy, lumbar region (principal)
CPT/HCPCS: J3301

== ENCOUNTER 2021-07-19 14:43 | Outpatient (CLI) | payer MEDICARE, OTHER ==
[~2021-07-19] VITALS: Ht 170.2 cm; Wt 87.4 kg
[2021-07-19] MEDS ORDERED: PACERONE100 MG PO (15:43)
[2021-07-19] MEDS ORDERED: RT ADVAIR 128 DISKUS (15:45)
[2021-07-19 15:46] VITALS: BP 169/84; PULSE 71; TEMP 98.8
[2021-07-19] MEDS ORDERED: FASENRA PE30 MG/1 ML SQ (16:15)
== END 2021-07-21 15:25 ==
LOC: EUO 14:43
DX: M81.0 Age-related osteoporosis without current pathological fracture (principal)
CPT/HCPCS: J3489

== ENCOUNTER → 2022-03-09 | Outpatient (CLI) | payer MEDICARE, OTHER ==
[~2022-03-09] MED LIST changes: +FASENRA PE30 MG/1 ML SQ; +PACERONE100 MG PO; +PROVENTIL0.09 MG/A1 IH; +RT ADVAIR 128 DISKUS
== END ==
LOC: COL.LAB 11:17 → COL.RAD 11:26
DX: M16.12 Unilateral primary osteoarthritis, left hip (principal)

== ENCOUNTER → 2022-05-02 | Outpatient (CLI) | payer MEDICARE, OTHER | LOC: MC.RAD 13:03 | DX: Z12.31 Encounter for screening mammogram for malignant neoplasm of breast (principal) ==

== ENCOUNTER → 2022-06-04 | Outpatient (RCR) | payer MEDICARE, OTHER | END | disposition home or self-care (01) | LOC: MKS.ESL.PT | DX: G62.9 Polyneuropathy, unspecified (principal) ==

== ENCOUNTER → 2023-05-22 | Outpatient (CLI) | payer MEDICARE, OTHER ==
[~2023-05-22] MED LIST changes: +LIPITOR 40MG TA40 MG PO; +MAG-OX 400400 MG/TAB PO; +PROLIA60 MG/ML SQ; +SYNTHROID0.05 MG/TA PO
== END ==
LOC: CANSCHCLI → MC.RAD 13:02
DX: Z12.31 Encounter for screening mammogram for malignant neoplasm of breast (principal)

== ENCOUNTER → 2024-03-03 | Outpatient (CLI) | payer MEDICARE, OTHER | LOC: COL.RAD 10:13 | DX: S22.070A Wedge compression fracture of T9-T10 vertebra, initial encounter for closed fracture (principal); S22.080A Wedge compression fracture of T11-T12 vertebra, initial encounter for closed fracture; S32.030A Wedge compression fracture of third lumbar vertebra, initial encounter for closed fracture; M48.061 Spinal stenosis, lumbar region without neurogenic claudication; M43.16 Spondylolisthesis, lumbar region; M51.36 Other intervertebral disc degeneration, lumbar region; M47.816 Spondylosis without myelopathy or radiculopathy, lumbar region; X58.XXXA Exposure to other specified factors, initial encounter ==

== ENCOUNTER → 2024-04-14 | Outpatient (CLI) | payer OTHER ==
[~2024-04-14] VITALS: Ht 170.2 cm; Wt 77.4 kg
[~2024-04-14] MED LIST changes: +TRELEGY ELLIPT1 EAC1 IH; +Triamcinolone 40 MG/ML 1 ML VIAL IJ SCH
[2024-04-14 12:36] VITALS: BP 170/74; PULSE 103; TEMP 97.8
[2024-04-14 14:00] VITALS: BP 148/67; PULSE 104
== END ==
LOC: COL.RAD 12:11
DX: M54.50 Low back pain, unspecified (principal)
CPT/HCPCS: J0665; J3301